=== PATIENT | male | born 1975 | race Caucasian/White ===

== ENCOUNTER 2018-01-11 16:55 | Emergency (ER) | payer OTHER ==
[~2018-01-11] VITALS: Ht 175.3 cm; Wt 103.0 kg
[~2018-01-11 16:55] MED LIST: ANDRODERM1 EACH TOP; ASPIRIN EC81 M1 PO; AXIRON30 MG/1.1 TOP; BACTRIM DS TAB1 EACH PO; CEFADROXIL500 M1 PO; CLONAZEPAM2 M2; CLONAZEPAM2 MG PO; KEFLEX500 M1 PO; LASIX40 M1 PO; METFORMIN500 MG PO; OXYCODONE HCL5 M1 PO; PRAVASTATIN SOD20 M2 PO; PROTONIX20 M1 PO; ROBAXIN 500MG500 MG PO; VITAMIN D5000 UNIT PO; XIFAXAN550 MG PO; ZOLPIDEM TARTRA10 MG PO
--- NOTE | 2018-01-11 18:42 | RADIOLOGY REPORT ---
EXAMINATION: XR FOREARM, LEFT CLINICAL INFORMATION: Pain. COMPARISON: None TECHNIQUE: AP and lateral views of the left forearm were obtained. FINDINGS: There is no fracture. There is no dislocation of the elbow or the wrist. There are scattered soft tissue calcifications. There is a tiny calcifications at the posterior wrist. There are calcifications in the soft tissues of the upper arm around the distal upper arm at the triceps and adjacent to the elbow joint around the radial capitellum joint, near the medial humeral condyle and in near the olecranon. There is no bone erosions. The wrist joint and the elbow joint are normal. IMPRESSION: 1. No acute abnormality of the forearm.
[2018-01-11 20:58] VITALS: BP 159/88
--- NOTE | 2018-01-11 21:02 | ED GENERAL ADULT ---
History of Present Illness General Chief Complaint: Upper Extremity Injury Stated Complaint: LT ARM PAIN Source: patient Exam Limitations: no limitations Vital Signs & Intake/Output Vital Signs & Intake/Output Vital Signs Date Time Temp Pulse Resp B/P B/P Pulse O2 O2 Flow FiO2 Mean Ox Delivery Rate 01/118 98.5 69 16 159/88 97 Room Air 01/11 1703 97.3 87 18 155/79 98 Room Air Room Air ED Intake and Output 01/12 0000 01/11 1200 Intake Total 0 Output Total Balance 0 Intake, Oral 0 Patient 227 lb Weight Weight Reported by Patient Measurement Method Allergies Coded Allergies: NO KNOWN ALLERGIES (09/18/15) Reconcile Medications Aspirin (Ecotrin*) 81 MG TABLET.DR 1 TAB PO DAILY SUPPLEMENT (Reported) Cefadroxil 500 MG CAPSULE 1 CAP PO BID SKIN INFECTION Cephalexin (Keflex) 500 MG CAPSULE 1 TAB PO TID PROPHYLAXIS Cholecalciferol (Vitamin D3) (Vitamin D) 5,000 UNIT TABLET 1 TAB PO DAILY SUPPLEMENT (Reported) Clonazepam (Unknown Strength) TABLET (Unknown Dose) UNKNOWN (Reported) Diclofenac Sodium (Voltaren) 1 % GEL..GRAM. 1 GM TOP 4 TIMES/DAY PRN pain apply to affected area(s) Furosemide (Lasix) 40 MG TABLET 1 TAB PO DAILY LEG EDEMA Naproxen (Naprosyn) 500 MG TABLET 1 TAB PO BID PRN pain Oxycodone HCl 5 MG TABLET 1 TAB PO TIDPRN PRN PAIN (Reported) Oxycodone HCl 5 MG TABLET 1 TAB PO BIDP PRN PAIN Oxycodone HCl 5 MG TABLET 1 TAB PO BIDP PRN PAIN Pantoprazole Sodium (Protonix) 20 MG TABLET.DR 1 TAB PO DAILY GERD Pravastatin Sodium 20 MG TABLET 1 TAB PO DAILY CHOLESTEROL (Reported) Sulfamethoxazole/Trimethoprim (Bactrim Ds Tablet) 1 EACH TABLET 1 TAB PO BID PROPHYLAXIS Testosterone (Axiron) 30 MG/1.5 ML KARMEN..CREDIT REPORTER 1 DANNY TOP QAM HRT (Reported) Testosterone (Androderm) 1 EACH PATCH.TD24 1 PATCH TOP DAILY HRT (Reported) Triage Note: PT TO ED WITH C/O LEFT FOREARM AND LEFT ELBOW "I WAS WORKING OUT LIFTING WEIGHTS AND FELT IT TEAR, I'VE HAD TEARS AND SURGERIES BEFORE, IT KNOW WHAT IT FEELS LIKE". PT ABLE TO MOVE,BEND LEFT ELBOW. Triage Nurses Notes Reviewed? yes Onset: Abrupt Duration: hour(s): Timing: constant HPI: 42-year-old male with a history of hypertension, hyperlipidemia, diabetes, IBS, anxiety, previous left tricep tear requiring surgical repair 1.5 years ago presenting with left proximal forearm pain while working out at the gym earlier today. States that it feels similar to his prior tricep injury. Patient presents to the emergency department because he recently switched health insurance is, and his previous orthopedic provider does not accept his current insurance. He was unsure how to obtain a new orthopedic provider for outpatient evaluation, and therefore presents to the emergency department for help with obtaining a new provider. Denies numbness or paresthesias. (Delmis Ware) Past History Travel History Traveled to [place] past 21 day No Medical History Any Pertinent Medical History? see below for history Neurological: NONE EENT: NONE Cardiovascular: hypertension, HIGH CHOLESTEROL Respiratory: NONE Gastrointestinal: irritable bowel syndrome, elevated LFT's Hepatic: NONE Renal: NONE Musculoskeletal: R SHOULDER IMPINGED R SHOULDER BONE SPUR ?BACK PROBLEM Psychiatric: anxiety Endocrine: diabetes Blood Disorders: NONE Cancer(s): NONE RN FIRST ASSIST/Reproductive: LOW TESTOSTERONE LEVELS Surgical History Surgical History: RT SHOULDER SX Psychosocial History What is your primary language [place]ian Tobacco Use: Never used ETOH Use: denies use Illicit Drug Use: denies illicit drug use Family History Hx Contributory? No (Delmis Ware) Review of Systems Review of Systems Constitutional: Reports: no symptoms. EENTM: Reports: no symptoms. Respiratory: Reports: no symptoms. Cardiovascular: Reports: no symptoms. GI: Reports: no symptoms. Genitourinary: Reports: no symptoms. Musculoskeletal: Reports: see HPI. Skin: Reports: no symptoms. Neurological/Psychological: Reports: no symptoms. Hematologic/Endocrine: Reports: no symptoms. Immunologic/Allergic: Reports: no symptoms. All Other Systems: Reviewed and Negative (Delmis Ware) Physical Exam Physical Exam General Appearance: well developed/nourished, no apparent distress, alert, awake , comfortable Comments: Gen.: Well-nourished, well-developed, no acute distress. Head: Normocephalic, atraumatic. Eyes: Normal inspection bilaterally Ears: Normal inspection bilaterally Nose: Normal inspection Neck: Normal inspection Lungs: clear to auscultation bilaterally, normnal breath sounds Heart: regular rate and rhythm Abdomen: soft and non-tender Extremities: Left arm Inspection: Old surgical scar to the posterior aspect of the elbow, no signs of acute injury, no erythema or edema Palpation: Tender to palpation over the proximal forearm ROM: unrestricted range of motion at the elbow and shoulder joints Sensation: intact Motor strength: 5/5 at the elbow and shoulder joints, notably 5 out of 5 motor strength with elbow extension indicating good tricep motor function Pulse: 2+ radial pulse Neurologic: alert and oriented x3, steady gait Skin: warm and dry Psychiatric: Normal mood and affect, no apparent delusions or hallucinations, behavior appropriate Core Measures ACS in differential dx? No CVA/TIA Diagnosis: No Sepsis Present: No Sepsis Focused Exam Completed? No (Delmis Ware) Progress Differential Diagnoses I considered the following diagnoses in my evaluation of the patient: [Tricep tear versus triceps rupture versus fracture versus nerve impingement versus muscular strain] Plan of Care: Current Medications Sig/Vladimir Start time Last Medication Dose Stop Time Status Admin Lidocaine/Epinephrine 20 ML ONCE ONE 01/11 2115 CAN 01/12 2116 X-ray unremarkable Patient was given contact information for the on-call orthopedic provider and instructed to call their office and inquire if they accept his insurance Counseled him that if the on-call orthopedist does not accept his insurance he may call his insurance company to find orthopedic providers in his area that accept his insurance Counseled on supportive care and strict return precautions Given Rx naproxen and Voltaren gel for pain, offered sling for comfort but declining Initial ED EKG: none (Delmis Ware) Departure Departure Disposition: HOME OR SELF CARE Condition: Stable Clinical Impression Primary Impression: Left arm pain Referrals: Elly José MD Patient Has No Primary Care Dr (PCP/Family) Additional Instructions: Use naproxen and Voltaren gel as needed for pain. Follow-up with orthopedics for reevaluation. Return to the emergency department for any new or worsening symptoms. Departure Forms: Customer Survey General Discharge Information Prescriptions: Current Visit Scripts Diclofenac Sodium (Voltaren) 1 GM TOP 4 TIMES/DAY PRN pain #1 TUBE apply to affected area(s) Naproxen (Naprosyn) 1 TAB PO BID PRN pain #60 TAB (Delmis Ware) PA/PERSONNEL ADVISER Co-Sign Statement Statement: ED Attending supervision documentation- [] I saw and evaluated the patient. I have also reviewed all the pertinent lab results and diagnostic results. I agree with the findings and the plan of care as documented in the PA's/PERSONNEL ADVISER's documentation. [x] I have reviewed the ED Record and agree with the PA's/PERSONNEL ADVISER's documentation. [] Additions or exceptions (if any) to the PAs/PERSONNEL ADVISER's note and plan are summarized below: [] (Brian MARIE,Morales Wolfe) Critical Care Note Critical Care Note Critical Care Time: non-applicable (Marline BETANCOURT,Delmis)
[2018-01-11] MEDS ORDERED: VOLTAREN100 GM TOP (21:03)
[2018-01-11] MEDS ORDERED: NAPROSYN500 M1 PO (21:03)
== END 2018-01-11 21:10 ==
LOC: ERH 16:55
DX: M79.602 Pain in left arm (principal)
CPT/HCPCS: 73090-LT; J2001